=== PATIENT | female | born 1980 ===

== ENCOUNTER 2017-12-26 01:38 | Inpatient (IN) | payer BC ==
[2017-12-26] MEDS ORDERED: Nalbuphine 20 MG/ML 1 ML Syringe IVPUSH PRN (02:26)
[2017-12-26] MEDS ORDERED: Sodium Chloride 0.9% 10 ML Syringe FLUSH PRN (02:26)
[2017-12-26] MEDS ORDERED: Ondansetron 4 MG/2 ML SDV IVPUSH PRN (02:26)
[2017-12-26] MEDS ORDERED: Oxytocin/Lactated Ringers 10 UNIT/1,000 ML BAG IV SCH ×2 (02:30)
[2017-12-26] MEDS: Lactated Ringers 1,000 ML IV SCH ×2 (05:06→09:16)
--- NOTE | 2017-12-26 07:13 | PCM.LDHP ---
L&D History of Present Illness - General Date of Service: 12/26/17 Admit Problem/Dx: Patient Status Order with Admit Dx/Problem 12/26/17 02:26 Patient Status [ADT] Routine Admission Diagnosis/Problem Admission Diagnosis/Problem 12/26/17 07:00 Naty is a 37-year-old 2 para 1001 white female was admitted in active labor with spontaneous rupture membranes at approximately 0200 hrs. on 2017. She is partially 3-4 cm dilated with clear amniotic fluid noted upon admission to labor and delivery. She is progressing well. heart tones are reassuring. JOÃO was 12/25/2017 placing her at 40-1/7 weeks gestational age. Source of Information: Patient History Limitations: Reports: No Limitations - History of Present Illness Introduction:: CONTINUOUS [employer] history 2 para 1001. JOÃO is 12/25/2017 as determined by certain last menstrual start 03/20/2017 and supported by 2 ultrasounds done 06/15/2017. Patient menarche age 13 cycles every 30 days, lasting for approximately 5-7 days positive hCG was on 04/28/2017. Period was certain and occurred on a regular basis. Previous delivery was on 02/07/2015 at 40-6/7 weeks after 24 hours of labor7 lbs. 3 oz. female born via vaginal vacuum extraction. Child's name is Mallorie Morin. course with this started on 06/15/2017 at 12-3/7 weeks gestational age. Patient was seen on a regular basis, made good fundal height growth. Her weight gain was from the first weight of 151-179 pounds for a 28 pound increase. Throughout the course. One-hour GTT was elevated at 171 but her 3 test was normal. His factors included advanced maternal age and history of interval depression with last . Patient plans to Breast-feed. Group B strep screen is negative. Laboratory evaluation shows blood to be a positive with negative endometrial screen. First laboratory testing showed hemoglobin 12.7 g/dL and platelets are 305,000. She is rubella immune. RPR is nonreactive. Urine culture was unremarkable. Hepatitis B surface antigen and HIV assays were both negative. GC and chlamydia assays both negative. Second trimester labs showed hemoglobin 10.8 g/dL which time she was started on ferrous sulfate 325 mg 1 by mouth daily. Platelets were 257,000. One-hour GTT was 171 g/dL. Three-hour glucose times test was normal with a fasting blood sugar of 88, on hour sugar of 147, 2 hour sugar 151 end approximately glucose of 140. Group B strep screen was negative. Allergies none Medications: 1. ends 1 by mouth daily number 2. vitamin D3 2000 units?3 Per Day 3. Ferrous sulfate 325 mg per day. Past medical history: 1. Vacuum extraction delivery 1 2. depression after her last . 3. History of acne treated medically Past surgical history: Unremarkable Family history: maternal second cousin with Down syndrome. Patient's mother is alive with breast cancer and history of obesity. Father is alive with history of prostate cancer. Is a smoker. One sister alive and well. Paternal grandmother alive with dementia at age 97. Paternal grandmother secondary to kidney problems. Maternal grandfather in his 90s paternal grandfather with COPD. No anesthesia, bleeding, blood clotting or noted in the family. Social history patient is . is Cong. She works at [employer], is a college graduate. She does not use any significant loss of alcohol , drugs or tobacco. Review of systems: Patient has no major concerns. Has done well with depression during the course of . Baby has been active. Skin: Negative Cardiovascular: No chest pain or exercise tolerance Respiratory: No infectious symptoms or shortness of breath Breasts: Changes associated with . Patient plans to breast-feed GI: Negative : Body habitus changes associated with increased fundal height of . Musculoskeletal: Negative with the exception of some lower extremity edema on occasions Neurological: Negative Physical exam: In general patient is well-developed well-nourished pleasant female who appears to be tolerating the stress of labor very well. Her vital signs on last evaluation in clinic [id number] showed a weight of 179 pounds, blood pressure 106/55. heart rate was 128. Pre-gravid weight was 151. Height is 5 feet 2 inches. Pregravid BMI is 26.2. In general patient is well-developed, well-nourished, pleasant female who is in mild to moderate distress secondary to contractions. She is alert and oriented 3. HEENT, neck and back within normal Lungs are clear with good breath sounds in all lung post. Cardiovascular exam shows regular rate and rhythm without murmurs. Breasts exam deferred. Abdomen is protuberant with last fundal height noted to be 41 cm. Baby is in vertex presentation by Oleg fabricio. Most recent cervical exam shows cervix to be 7 cm by nursing evaluation. Extremities and neurological exam are grossly within normal limits. - Related Data Allergies/Adverse Reactions: Allergies Allergy/AdvReac Type Severity Reaction Status Date / Time No Known Allergies Allergy Verified 02/07/15 01:17 Home Medications: Home Meds PNV95/Ferrous Fumarate/FA [ Multivitamins] 1 each PO DAILY 02/07/15 [ History] Benzocaine/Menthol [Dermoplast Pain Relief [place]] 1 applic TOP ASDIRECTED PRN # 30 canister 02/09/15 [Rx] Docusate Sodium [Colace] 100 mg PO BID PRN #30 cap 02/09/15 [Rx] Ibuprofen [Motrin] 600 mg PO Q4H PRN #30 tablet 02/09/15 [Rx] Lanolin [Lansinoh HPA] 1 applic TOP ASDIRECTED PRN #30 tube 02/09/15 [Rx] Past Medical History - Past Health History Medical/Surgical History: Denies Medical/Surgical History Cardiovascular History: Reports: None Respiratory History: Reports: None Gastrointestinal History: Reports: None Genitourinary History: Reports: None [employer]OUS [employer] History: Reports: None Musculoskeletal History: Reports: None Neurological History: Reports: None Psychiatric History: Reports: Depression Endocrine/Metabolic History: Reports: None Hematologic History: Reports: Anemia Immunologic History: Reports: None Oncologic (Cancer) History: Reports: None Dermatologic History: Reports: None - Infectious Disease History Infectious Disease History: Reports: None - Past Surgical History Head Surgeries/Procedures: Reports: None Social & Family History - Family History Family Medical History: Noncontributory - Tobacco Use Smoking Status *Q: Never Smoker Second Hand Smoke Exposure: No - Recreational Drug Use Recreational Drug Use: No H&P Review of Systems - Review of Systems: Review Of Systems: See Below L&D Exam - Exam Exam: See Below - Vital Signs Vital Signs: Last Vital Signs Temp 36.7 C 12/26/17 02:05 Pulse Resp 17 12/26/17 02:05 BP 134/82 12/26/17 02:05 Pulse Ox 100 12/26/17 02:05 Weight: 81.193 kg - Patient Data Lab Results Last 24 hrs: Laboratory Results - last 24 hr 12/26/17 Range/Units 02:50 WBC 8.79 (3.98-10.04) K/mm3 RBC 4.09 (3.98-5.22) M/mm3 Hgb 11.3 (11.2-15.7) gm/L Hct 33.4 L (34.1-44.9) % MCV 81.7 (79.4-94.8) fl MCH 27.6 (25.6-32.2) pg MCHC 33.8 (32.2-35.5) g/dl RDW Std Deviation 42.3 (36.4-46.3) fL Plt Count 248 (182-369) K/mm3 MPV 8.8 L (9.4-12.3) fl Neut % (Auto) 64.8 (34.0-71.1) % Lymph % (Auto) 24.3 (19.3-51.7) % [place] % (Auto) 8.9 (4.7-12.5) % Eos % (Auto) 1.0 (0.7-5.8) Baso % (Auto) 0.2 (0.1-1.2) % Neut # (Auto) 5.69 (1.56-6.13) K/mm3 Lymph # (Auto) 2.14 (1.18-3.74) K/mm3 [place] # (Auto) 0.78 H (0.24-0.36) K/mm3 Eos # (Auto) 0.09 (0.04-0.36) K/mm3 Baso # (Auto) 0.02 (0.01-0.08) K/mm3 Result Diagrams: 12/26/17 02:50 Problem List Initiated/Reviewed/Updated: Yes Orders Last 24hrs: Active Orders 24 hr Category Date Time Status Patient Status [ADT] Routine ADT 12/26/17 02:26 Active Activity as Tolerated [RC] PFP Care 12/26/17 02:26 Active Communication Order [RC] ASDIRECTED Care 12/26/17 02:26 Active Heart Tones [RC] ASDIRECTED Care 12/26/17 02:27 Active Non Stress Test [RC] PER UNIT ROUTINE Care 12/26/17 02:26 Active Notify Provider [RC] PFP Care 12/26/17 02:26 Active Notify Provider [RC] PRN Care 12/26/17 02:26 Active Peripheral IV Care [RC] . DIRECTED Care 12/26/17 02:27 Active Vital Signs [RC] PER UNIT ROUTINE Care 12/26/17 02:26 Active Regular Diet [DIET] Diet 12/26/17 Breakfast Active RAPID PLASMA REAGIN,RPR [CHEM] Routine Lab 12/26/17 02:26 Ordered Lactated Ringers [Ringers, Lactated] 1,000 ml Med 12/26/17 02:30 Active IV ASDIRECTED Nalbuphine [Nubain] Med 12/26/17 02:26 Active 10 mg IVPUSH Q2H PRN Ondansetron [Zofran] Med 12/26/17 02:26 Active 4 mg IVPUSH Q4H PRN Oxytocin/Lactated Ringers [Pitocin in LR 10 Units/1,000 Med 12/26/17 02:30 Active ML] 10 unit in 1,000 ml IV .CONTINUOUS Oxytocin/Lactated Ringers [Pitocin in LR 10 Units/1,000 Med 12/26/17 02:30 Active ML] 10 unit in 1,000 ml IV TITRATE Sodium Chloride 0.9% [Saline Flush] Med 12/26/17 02:26 Active 10 ml FLUSH ASDIRECTED PRN Electronic Heart Tones Ext w TOCO [WOMSER] Oth 12/26/17 02:26 Ordered Routine Electronic Heart Tones Internal [WOMSER] Per Unit Oth 12/26/17 02:26 Ordered Routine Peripheral IV Insertion Adult [OM.PC] Routine Oth 12/26/17 02:26 Ordered Resuscitation Status Routine Resus Stat 12/26/17 02:26 Ordered Medication Orders Lactated Ringer's (Ringers, Lactated) 1,000 mls @ 100 mls/hr IV ASDIRECTED STACY Last Admin: 12/26/17 05:06 Dose: 100 mls/hr Oxytocin/Lactated Ringer's (Pitocin In Lr 10 Units/1,000 Ml) 10 unit in 1,000 mls @ 500 mls/hr IV .CONTINUOUS STACY Oxytocin/Lactated Ringer's (Pitocin In Lr 10 Units/1,000 Ml) 10 unit in 1,000 mls @ 12 mls/hr IV TITRATE STACY; Protocol Nalbuphine HCl (Nubain) 10 mg IVPUSH Q2H PRN PRN Reason: pain Ondansetron HCl (Zofran) 4 mg IVPUSH Q4H PRN PRN Reason: Nausea/Vomiting Sodium Chloride (Saline Flush) 10 ml FLUSH ASDIRECTED PRN PRN Reason: Keep Vein Open Assessment/Plan Comment:: 1. A 40-1/7 week intrauterine , spontaneous rupture membranes, active labor progressing well. 2. Risk factors for the include maternal age of 37 and history of depression with previous . 3. Group B strep screen negative 4. Patient wishes to labor naturally 5. Rubella titer shows immunity 6. Patient plans to breast-feed Plan: 1. I anticipate normal spontaneous vaginal delivery 2. Routine labor care 3. Support breast-feed and decision
[2017-12-26] MEDS ORDERED: Lidocaine 1% 50 ML MDV ONE (09:37)
--- NOTE | 2017-12-26 10:36 | PCM.SN ---
- Free Text/Narrative Note: Naty is a 37-year-old 2 now para 2002 white female who is admitted early this a.m. with spontaneous rupture membranes at 40-1/7 weeks gestational age with a due date of 12/25/2017. Partially 4 centers upon admission, she progressed relatively rapidly to 8 cm and then progression slowed. Only 1 to complete and pushed for approximately 30 minutes before delivering a viable, monteiro, male infant with Apgars of 7 and 9, a length of 20.5 inches, a weight of 3260 g menses 7 lbs. 3 oz.) in a right occiput anterior position. Baby delivered at 1002 hrs. on 12/26/2017. The baby had a nuchal cord which was loose 1 and reduced over the baby's head. The umbilical cord also had a true knot. The umbilical cord had 3 vessels. The patient a right labial, a right vaginal sulcus and a second-degree perineal laceration. These were all repaired with 3-0 Monocryl suture in a routine fashion after injection of lidocaine 1% 10 mL total. He was placed on mom's abdomen. Cord was clamped 2 and was cut by the baby's father Cong. Baby's name is Andrez Palmer. Pitocin was started after delivery of baby to facilitate increase in uterine tone and bleeding. Placenta delivered in a Lopez presentation at 1014 hrs., appeared intact and complete and was discarded per patient desire. Blood loss was 200 mL. Patient plans to breast-feed. Condition: Good
[2017-12-26] MEDS ORDERED: Witch Hazel Medicated Pads 100/Jar TOP PRN (11:42)
[2017-12-26] MEDS ORDERED: Lanolin 100% Cream 7 GM Tube TOP PRN (11:42)
[2017-12-26] MEDS ORDERED: Benzocaine/Menthol 20%-0.5% Spray 56 GM Canister TOP PRN (11:42)
[2017-12-26] MEDS ORDERED: Lidocaine 1% 10 ML MDV INJECT ONE (11:42)
[2017-12-26] MEDS ORDERED: Acetaminophen 325 MG Tab PO PRN (11:42)
[2017-12-26] MEDS ORDERED: Docusate Sodium 100 MG Cap PO PRN (11:42)
[2017-12-26] MEDS: Ibuprofen 600 MG Tab PO PRN ×2 (13:48→21:36)
--- NOTE | 2017-12-27 07:45 | PCM.SN ---
- Free Text/Narrative Note: Naty is a 37-year-old 2 now para 2002 white female who presented 2017 with spontaneous rupture membranes at 40-1/7 weeks gestational age with a due date of 12/25/2017. At 10:02 hrs on 12/26/2017 she delivered a viable, monteiro, male with Apgars of 7 and 9, a length of 20.5 inches, a weight of 3260 g (7 lbs. 3 oz.) in a BEATA position. The patient a right labial, a right vaginal sulcus and a second-degree perineal laceration. Pitocin was started after delivery of baby to facilitate increase in uterine tone and bleeding. Patient denies excessive vaginal discharge, fevers/chills, headaches, blurry vision, malaise, LE edema, excessive pain/bleeding/cramping, chest pain, cough, SOB, or dyspnea. Abdominal exam revealed normally aga uterus with level of fundus below umbilicus, no LE edema. Patient appears to be well-developed, well-nourished, and in good health, with no jaundice/pallor or other obvious concerns on exam. Objective VS 12/27/2017 are BP: 97/50 HR: 90 RR: 16 T: 36.8 O2: 99% on room air. ASSESSMENT 1. Normal spontaneous vaginal delivery at 40-1/7 wks gestational age 2. Normal Labor 3. Plans to breastfeed PLAN 1. Plan to d/c home tomorrow 2. Support/encourage decision
[2017-12-27] MEDS: Ibuprofen 600 MG Tab PO PRN (10:41)
[2017-12-28] MEDS: Ibuprofen 600 MG Tab PO PRN (03:09)
--- NOTE | 2017-12-28 07:01 | PCM.DCSUM1 ---
Discharge Summary - Hospital Course Free Text/Narrative:: Note: Naty is a 37-year-old 2 now para 2002 white female who is admitted early this a.m. with spontaneous rupture membranes at 40-1/7 weeks gestational age with a due date of 12/25/2017. Partially 4 centers upon admission, she progressed relatively rapidly to 8 cm and then progression slowed. Only 1 to complete and pushed for approximately 30 minutes before delivering a viable, monteiro, male with Apgars of 7 and 9, a length of 20.5 inches, a weight of 3260 g menses 7 lbs. 3 oz.) in a right occiput anterior position. Baby delivered at 1002 hrs. on 12/26/2017. The baby had a nuchal cord which was loose 1 and reduced over the baby's head. The umbilical cord also had a true knot. The umbilical cord had 3 vessels. The patient a right labial, a right vaginal sulcus and a second-degree perineal laceration. These were all repaired with 3-0 Monocryl suture in a routine fashion after injection of lidocaine 1% 10 mL total. He was placed on mom's abdomen. Cord was clamped 2 and was cut by the baby's father Cong. Baby's name is Andrez Palmer. Pitocin was started after delivery of baby to facilitate increase in uterine tone and bleeding. Placenta delivered in a Lopez presentation at 1014 hrs., appeared intact and complete and was discarded per patient desire. Blood loss was 200 mL. Patient plans to breast-feed. Patient is doing well postoperatively. Hemoglobin is dropped to 8.5 the patient is tolerating this well and has no further bleeding. She is on vitamins. Will be discharged on iron. There is minimal lochia, patient is voiding well. Kristel without concerns. Breast-feeding is going well. Patient is desiring discharge home. Condition: Good - Discharge Data Discharge Date: 12/28/17 Discharge Disposition: Home, Self-Care 01 Condition: Good - Patient Instructions Diet: Regular Diet as Tolerated (Nursing diet with increase calories and calcium as recommended) Activity: As Tolerated (No intercourse or tampons until bleeding resolves) Driving: Do Not Drive (2 days) Showering/Bathing: May Shower (May take a bath) Notify Provider of: Increased Pain, Swelling and Redness, Nausea and/or Vomiting - Discharge Plan *PRESCRIPTION DRUG MONITORING PROGRAM REVIEWED*: No *COPY OF PRESCRIPTION DRUG MONITORING REPORT IN PATIENT MUSTAPHA: No Prescriptions/Med Rec: Ferrous Sulfate 325 mg PO BID #100 tablet Home Medications: Home Meds PNV95/Ferrous Fumarate/FA [ Multivitamins] 1 each PO DAILY 02/07/15 [ History] Benzocaine/Menthol [Dermoplast Pain Relief [place]] 1 applic TOP ASDIRECTED PRN # 30 canister 02/09/15 [Rx] Docusate Sodium [Colace] 100 mg PO BID PRN #30 cap 02/09/15 [Rx] Ibuprofen [Motrin] 600 mg PO Q4H PRN #30 tablet 02/09/15 [Rx] Lanolin [Lansinoh HPA] 1 applic TOP ASDIRECTED PRN #30 tube 02/09/15 [Rx] Acetaminophen [Tylenol] 650 mg PO Q4H PRN tablet 12/28/17 [Rx] Ferrous Sulfate 325 mg PO BID #100 tablet 12/28/17 [Rx] Referrals: Rafa Bullard MD [Primary Care Provider] - (Return to clinicDr. Bullard2 weeks.) - Discharge Summary/Plan Comment DC Time >30 min.: No Discharge Summary/Plan Comment: Discharge instructions: 1. Discharge home 2. Diet, activity and follow-up discussed with patient. Recommend nursing diet with increased calories and calcium. 3. Precautions given concern increased pain, bleeding, temperature, signs/ symptoms of DVT/PE. 4. Medications per home medication was printed, discussed with and given to the patient. 5. Return to clinic-Dr. Bullard[facility] in 2 weeks. Diagnosis: Term -delivered Condition: Good - Patient Data Vitals - Most Recent: Last Vital Signs Temp 36.9 C 12/28/17 03:10 Pulse 96 12/28/17 03:10 Resp 14 12/28/17 03:10 BP 98/53 L 12/28/17 03:10 Pulse Ox 100 12/28/17 03:10 Weight - Most Recent: 81.193 kg I&O - Last 24 hours: Intake & Output 12/27/17 12/27/17 12/28/17 14:59 22:59 06:59 Intake Total 480 240 Balance 480 240 Lab Results - Last 24 hrs: Laboratory Results - last 24 hr 12/27/17 Range/Units 10:13 WBC 13.22 H (3.98-10.04) K/mm3 RBC 3.10 L (3.98-5.22) M/mm3 Hgb 8.5 L (11.2-15.7) gm/L Hct 25.9 L (34.1-44.9) % MCV 83.5 (79.4-94.8) fl MCH 27.4 (25.6-32.2) pg MCHC 32.8 (32.2-35.5) g/dl RDW Std Deviation 41.9 (36.4-46.3) fL Plt Count 258 (182-369) K/mm3 MPV 8.9 L (9.4-12.3) fl Med Orders - Current: Current Medications Acetaminophen (Tylenol) 650 mg PO Q4H PRN PRN Reason: mild pain or fever Benzocaine/Menthol (Dermoplast Pain Relief [place]) 0 gm TOP ASDIRECTED PRN PRN Reason: Perineal Comfort Measure Last Admin: 12/26/17 13:49 Dose: 1 spray Docusate Sodium (Colace) 100 mg PO BID PRN PRN Reason: Constipation Emollient Ointment (Lansinoh Hpa) 0 gm TOP ASDIRECTED PRN PRN Reason: Sore Nipples Last Admin: 12/27/17 19:45 Dose: 1 tube Ibuprofen (Motrin) 600 mg PO Q4H PRN PRN Reason: Mild pain or fever Last Admin: 12/28/17 03:09 Dose: 600 mg Witch Mirna (Tucks) 1 pad TOP ASDIRECTED PRN PRN Reason: Hemorrhoid pain Last Admin: 12/26/17 13:49 Dose: 1 pad Discontinued Medications Lactated Ringer's (Ringers, Lactated) 1,000 mls @ 100 mls/hr IV ASDIRECTED STACY Last Admin: 12/26/17 09:16 Dose: 100 mls/hr Oxytocin/Lactated Ringer's (Pitocin In Lr 10 Units/1,000 Ml) 10 unit in 1,000 mls @ 500 mls/hr IV .CONTINUOUS STACY Oxytocin/Lactated Ringer's (Pitocin In Lr 10 Units/1,000 Ml) 10 unit in 1,000 mls @ 12 mls/hr IV TITRATE STACY; Protocol Last Titration: 12/26/17 09:16 Dose: 3 munits/min, 18 mls/hr Lidocaine HCl (Xylocaine 1%) Confirm Administered Dose 50 ml .ROUTE .STK-MED ONE Stop: 12/26/17 09:38 Last Admin: 12/26/17 10:05 Dose: 50 ml Lidocaine HCl (Xylocaine 1%) 10 ml INJECT ONETIME ONE Stop: 12/26/17 11:43 Nalbuphine HCl (Nubain) 10 mg IVPUSH Q2H PRN PRN Reason: pain Ondansetron HCl (Zofran) 4 mg IVPUSH Q4H PRN PRN Reason: Nausea/Vomiting Sodium Chloride (Saline Flush) 10 ml FLUSH ASDIRECTED PRN PRN Reason: Keep Vein Open
[2017-12-28 09:50] VITALS: BP 103/58
== END 2017-12-28 09:58 | disposition home or self-care (01) | DRG 560 ==
LOC: JD.OBCHECK 01:38 → JD.OB 02:26 → OBSVTOIN 10:02 → JD.OB 10:02 → JD.MS 10:03 → JD.OB 21:44
PROVIDERS: ADMIT Obstetrics & Gynecology; ATTEND Obstetrics & Gynecology
PROC: 10E0XZZ Delivery of Products of Conception, External Approach (ICD-10-PCS; principal; 2017-12-26)
PROC: 0KQM0ZZ Repair Perineum Muscle, Open Approach (ICD-10-PCS; 2017-12-26)
DX: O42.02 Full-term premature rupture of membranes, onset of labor within 24 hours of rupture (principal); O70.1 Second degree perineal laceration during delivery; O69.81X0 Labor and delivery complicated by cord around neck, without compression, not applicable or unspecified; O09.523 Supervision of elderly multigravida, third trimester; Z3A.40 40 weeks gestation of pregnancy; Z37.0 Single live birth
CPT/HCPCS: 36415; 59025; 59300; 59409; 85025; 85027; A9270-GY; J2590; J7120